=== PATIENT | female | born 1970 ===

== ENCOUNTER → 2018-04-08 21:37 | Outpatient (REF) | payer OTHER, SELFPAY ==
[2018-04-08 22:39] LABS: Vitamin D 25 Hydroxy (D3) 57.6 ng/mL (30.0-100.0)
[2018-04-09 07:45] LABS: Hemoglobin A1C% w Est Avg Glu 5.1 % (4.0-6.0)
== END ==
LOC: LAB 21:37
PROVIDERS: Visit Provider Naturopath
DX: Z77.018 Contact with and (suspected) exposure to other hazardous metals (principal)
CPT/HCPCS: 36415; 82306; 83036; 83825

== ENCOUNTER → 2018-09-30 22:50 | Outpatient (ROUT) | payer OTHER, SELFPAY ==
[2018-10-01 01:35] LABS: Free T3, Triiodothyronine Free 4.31 pg/mL (2.77-5.27); T4 Total Thyroxine 4.49 ug/dL (5.5-11.0)
[2018-10-01 01:48] LABS: Thyroid Stimulating Hormone 0.86 uIU/mL (0.47-4.68)
== END ==
PROVIDERS: Visit Provider Naturopath
DX: E03.9 Hypothyroidism, unspecified (principal)
CPT/HCPCS: 36415; 84436; 84443; 84481